=== PATIENT | female | born 1970 | race Caucasian/White ===

== ENCOUNTER 2018-01-08 17:25 | Emergency (ER) | payer SELFPAY ==
[~2018-01-08] VITALS: Ht 154.9 cm; Wt 54.5 kg
[2018-01-08] MEDS ORDERED: DEXAMETHASONE 4 MG TABLET PO ONE (19:45)
[2018-01-08] MEDS ORDERED: KETOROLAC TROMETHAMINE 30 MG/ML VIAL IM ONE (19:45)
[2018-01-08 20:00] VITALS: BP 136/75
== END 2018-01-08 20:27 | disposition home or self-care (01) ==
LOC: EMS 17:27
DX: M54.12 Radiculopathy, cervical region (principal); G62.9 Polyneuropathy, unspecified
CPT/HCPCS: 96372; 99283; J1885; J8540